=== PATIENT | female | born 1990 | race Hispanic/Latino ===

== ENCOUNTER 2018-08-29 12:33 | Emergency (ER) | payer MEDICAID, OTHER ==
[2018-08-29 13:00] LABS: BASOPHILS % (AUTO) 0.7 % (0.0-5.0); EOSINOPHILS % (AUTO) 1.4 % (0.0-8.0); HEMATOCRIT 37.4 % (36-48); LYMPHOCYTES % (AUTO) 26.9 % (21.0-51.0); MEAN CORPUSCULAR HEMOGLOBIN 28.1 pg (27.0-33.0); MEAN CORPUSCULAR HGB CONC 33.2 g/dL (32.0-36.0); MEAN CORPUSCULAR VOLUME 84.7 fL (79-99); MONOCYTES % (AUTO) 6.2 % (3.0-13.0); NEUTROPHILS % (AUTO) 64.8 % (40.0-77.0); PLATELET COUNT (AUTO) 305 K/uL (130-400); RED BLOOD CELL COUNT(AUTO) 4.41 MIL/uL (4.00-5.50); RED CELL DISTRIBUTION WIDTH 13.9 % (11.0-15.5); WHITE BLOOD COUNT (AUTO) 10.2 K/uL (4.8-10.8)
[2018-08-29 13:21] LABS: APPEARANCE,URINE Clear (CLEAR); BILIRUBIN,URINE Negative (NEGATIVE); COLOR,URINE Yellow (YELLOW); GLUCOSE, URINE (UA) Negative (NEGATIVE); KETONES,URINE Negative (NEGATIVE); LEUKOCYTE ESTERASE ,URINE Negative (NEGATIVE); NITRATE,URINE Negative (NEGATIVE); OCCULT BLOOD,URINE Negative (NEGATIVE); PROTEIN,URINE Negative (NEGATIVE)
== END 2018-08-29 15:01 | disposition home or self-care (01) ==
LOC: EDH 12:33
DX: O20.0 Threatened abortion (principal); Z3A.01 Less than 8 weeks gestation of pregnancy; Z90.49 Acquired absence of other specified parts of digestive tract; Z98.890 Other specified postprocedural states
CPT/HCPCS: 36415; 76817; 81003; 84702; 85025; 86900; 86901

== ENCOUNTER 2019-02-07 12:44 | Observation (INO) | payer MEDICAID ==
[2019-02-07 13:30] LABS: APPEARANCE,URINE Clear (CLEAR); BILIRUBIN,URINE Negative (NEGATIVE); COLOR,URINE Yellow (YELLOW); GLUCOSE, URINE (UA) Negative (NEGATIVE); KETONES,URINE 15 mg/dL (NEGATIVE); LEUKOCYTE ESTERASE ,URINE Small (NEGATIVE); NITRATE,URINE Negative (NEGATIVE); OCCULT BLOOD,URINE Negative (NEGATIVE); PROTEIN,URINE Negative (NEGATIVE)
[2019-02-07 14:12] LABS: BACTERIA,URINE Moderate /HPF (None Seen); MUCUS,URINE Few LPF (None Seen); RBC,URINE None Seen /HPF (0-1); SQUAMOUS EPITHELIAL CELL,UR Moderate /HPF (0-2)
== END 2019-02-07 14:56 | disposition home or self-care (01) ==
LOC: EDH 12:44 → LDH 13:01
PROVIDERS: ADMIT Obstetrics & Gynecology; ATTEND Obstetrics & Gynecology
DX: O26.893 Other specified pregnancy related conditions, third trimester (principal); R10.9 Unspecified abdominal pain; Z3A.28 28 weeks gestation of pregnancy
CPT/HCPCS: 81001; 99284; G0378 ×2

== ENCOUNTER 2020-06-04 21:26 | Observation (INO) | payer OTHER, MEDICAID ==
[2020-06-04 22:06] LABS: APPEARANCE,URINE Cloudy (CLEAR); BILIRUBIN,URINE Negative (NEGATIVE); COLOR,URINE Yellow (YELLOW); GLUCOSE, URINE (UA) Negative (NEGATIVE); KETONES,URINE Negative (NEGATIVE); LEUKOCYTE ESTERASE ,URINE Negative (NEGATIVE); NITRATE,URINE Negative (NEGATIVE); OCCULT BLOOD,URINE Negative (NEGATIVE); PH,URINE 6.5 (5.0-8.0); PROTEIN,URINE Negative (NEGATIVE)
[2020-06-04 22:14] LABS: AMPHET/METH SCREEN,URINE NEGATIVE (NEGATIVE); BARBITURATE SCREEN, URINE NEGATIVE (NEGATIVE); BENZODIAZEPINES SCREEN,URINE NEGATIVE (NEGATIVE); CANNABINOID SCREEN,URINE NEGATIVE (NEGATIVE); COCAINE SCREEN,URINE NEGATIVE (NEGATIVE); OPIATE SCREEN,URINE NEGATIVE (NEGATIVE); PHENCYCLIDINE SCREEN,URINE NEGATIVE (NEGATIVE)
[2020-06-04 22:19] LABS: AMORPHOUS SEDIMENT,UR Few /LPF (None Seen); BACTERIA,URINE Few /HPF (None Seen); MUCUS,URINE Few LPF (None Seen); RBC,URINE 0-1 /HPF (0-1); SQUAMOUS EPITHELIAL CELL,UR Few /HPF (0-2); WBC,URINE 0-1 /HPF (0-1)
[2020-06-04] MEDS ORDERED: LACTATED RINGERS 1000ML 1,000 ML IV SCH (23:15)
== END 2020-06-05 00:55 | disposition home or self-care (01) ==
LOC: EDH 21:26 → LDH 21:27
PROVIDERS: ADMIT Obstetrics & Gynecology; ATTEND Obstetrics & Gynecology
DX: O26.892 Other specified pregnancy related conditions, second trimester (principal); R10.9 Unspecified abdominal pain; O99.212 Obesity complicating pregnancy, second trimester; E66.9 Obesity, unspecified; Z88.0 Allergy status to penicillin; Z3A.26 26 weeks gestation of pregnancy
CPT/HCPCS: 80305; 81001; 96360; 99284; G0378 ×3

== ENCOUNTER 2025-08-02 19:15 | Emergency (ER) | payer BC, MEDICAID, OTHER ==
[~2025-08-02] VITALS: Ht 157.5 cm; Wt 93.4 kg
[2025-08-02 19:41] LABS: IMMATURE GRANULOCYTE ABSOLUTE 0.04 K/uL (0-1); NUCLEATED RED BLOOD CELLS 0.0 % (0.0-0.19); PLATELET COUNT (AUTO) 352 K/uL (130-400); RED BLOOD CELL COUNT(AUTO) 4.48 MIL/uL (4.00-5.50); RED CELL DISTRIBUTION WIDTH 12.7 % (11.0-15.5); WHITE BLOOD COUNT (AUTO) 11.7 K/uL (4.8-10.8)
--- NOTE | 2025-08-02 19:49 | ERN ---
General Chief Complaint: Abdominal Pain Stated Complaint: C/O ABD PAIN W/ N X V X DIARRHEA,DIZZINESS X 5 DAY Time Seen by MD: 19:18 History of Present Illness Initial Comments 35-year-old female, otherwise healthy, presents for vomiting and diarrhea for the last five days. Patient reports five to did not episodes of vomit and 10+ episodes of watery nonbloody diarrhea daily for the last five days. She reports dry in the mouth and feeling fatigued. She reports some generalized abdominal cramping. She went to her PCP and was discharged with an antiemetic which he has been taking. She has been able to drank liquid IV/Gatorade. When she tries to eat whole foods she vomits. Her kids have similar symptoms. No fevers. Allergies: Coded Allergies: No Known Drug Allergies (Verified Allergy, 12/14/12) Home Meds No Active Prescriptions or Reported Meds Past Medical History Past Medical History: No Pertinent History Past Surgical History: None Female( History) LMP: Jun 20, 2025 ROS Dictation CONSTITUTIONAL: No chills, no fever, no weakness, no diaphoresis, no malaise. HEAD/FACE: No signs of trauma. EENT: No eye pain, no blurred vision, no tearing, no double vision, no ear pain, no ear discharge, no nose pain, no nasal congestion, no throat pain, no throat swelling, no mouth pain. RESPIRATORY: No cough, no orthopnea, no SOB, no stridor, no wheezing. CARDIOVASCULAR: No chest pain, no edema, no palpitations, no syncope. GASTROINTESTINAL/ABDOMINAL: Nausea or vomiting diarrhea. GENITOURINARY: No abnormal discharge, no dysuria, no frequent urination, no hematuria. No complaints of pain in the genitals. MUSCULOSKELETAL: No back pain, no gout, no joint pain, no joint swelling, no muscle pain, no muscle stiffness, no neck pain. INTEGUMENTARY: No change in color, no change in hair/nails, no dryness, no lesion, no lumps, no rash. NEUROLOGICAL/PSYCH: No anxiety, not depressed, no emotional problem, no headache, no numbness, no pre-existing deficit, no history of seizures, no tremors, no weakness. HEMATOLOGIC/LYMPHATIC: Not anemic, no history of blood clots, no apparent bleeding, no bruising, glands not swollen. All Systems Negative, Except as Noted. Physical Exam Physical Exam Dictation VITAL SIGNS: Reviewed. GENERAL APPEARANCE: Alert, oriented x3, no acute distress, obese. HEAD AND FACE: Non-traumatic. EYES: PERRL, pink conjunctivas, eyelid no trauma, anterior chamber clear. EARS: Pinnas intact and no signs of trauma or erythema. Ear canals clear and no discharge. TMs no erythema. NOSE: No discharge, no bleeding. OROPHARYNX: Mouth normal, teeth no caries, tongue pink. Pharynx clear, no erythema. Tonsils no exudates, no abscesses noted. Mucous membrane moist. NECK: Supple, non-tender, no thyromegaly, no masses, no JVD, no bruits. BREAST: Deferred. CHEST: No tenderness, no crepitus, no paradoxical movement, no retractions. LUNGS: Clear, well-ventilated, symmetric, no rales, no wheezing, no rhonchi, no stridor, good breath sounds bilaterally. HEART: Regular rate, regular rhythm, no murmur, no gallops. VASCULAR: No peripheral edema. ABDOMEN: Soft, positive bowel sounds, nondistended, no guarding, nontender, no rebound, no masses no hepatomegaly, no splenomegaly, no Anguiano's sign, no her nias. RECTAL: Deferred. GENITAL: Deferred. NEUROLOGICAL: Normal speech, gross motor function intact, gross sensory function intact. MUSCULOSKELETAL: Neck nontender, full range of motion, back nontender, full range of motion. EXTREMITIES: Nontender, full range of motion. SKIN: Color pink, dry, no turgor, no rash, no lacerations, no abrasions, no contusions. LYMPHATICS: Deferred. Results Laboratory and Microbiology Lab and Micro Result Laboratory Tests Test 08/02/25 15:21 08/02/25 19:36 Urine Color LIGHT-YELLOW (YELLOW) Urine Appearance CLEAR (CLEAR) Urine pH 6.0 (5.0-8.0) Urine Specific [place] 1.003 (1.001-1.031) Urine Protein NEGATIVE mg/dL (NEGATIVE) Urine Glucose (UA) NEGATIVE mg/dL (NEGATIVE) Urine Ketones NEGATIVE mg/dL (NEGATIVE) Urine Occult Blood SMALL (NEGATIVE) H Urine Nitrate NEGATIVE (NEGATIVE) Urine Bilirubin NEGATIVE mg/dL (NEGATIVE) Urine Urobilinogen 0.2 mg/dL (0.2-1.0) Urine Leukocyte Esterase NEGATIVE Sana/uL Urine RBC 0-1 /HPF (0-1) Urine WBC 0-1 /HPF (0-1) Urine Squamous Epithelial Cells RARE /HPF (0-2) Urine Bacteria RARE /HPF (None Seen) White Blood Count 11.7 K/uL (4.8-10.8) H Red Blood Count 4.48 MIL/uL (4.00-5.50) Hemoglobin 12.8 g/dL (12.0-16.0) Hematocrit 38.9 % (36-48) Mean Corpuscular Volume 86.8 fL (79-99) Mean Corpuscular Hemoglobin 28.6 pg (27.0-33.0) Mean Corpuscular Hemoglobin Concent 32.9 g/dL (32.0-36.0) Red Cell Distribution Width 12.7 % (11.0-15.5) Platelet Count 352 K/uL (130-400) Mean Platelet Volume 10.6 fL (7.5-10.5) H Immature Granulocyte % (Auto) 0.3 % (0-1) Neutrophils (%) (Auto) 62.6 % (40.0-77.0) Lymphocytes (%) (Auto) 26.1 % (21.0-51.0) Monocytes (%) (Auto) 7.5 % (3.0-13.0) Eosinophils (%) (Auto) 2.9 % (0.0-8.0) Basophils (%) (Auto) 0.6 % (0.0-5.0) Neutrophils # (Auto) 7.3 K/uL (1.8-7.7) Lymphocytes # (Auto) 3.0 K/uL (1.0-4.8) Monocytes # (Auto) 0.9 K/uL (0.1-1.0) Eosinophils # (Auto) 0.34 K/uL (0.00-0.70) Basophils # (Auto) 0.07 K/uL (0.00-0.20) Absolute Immature Granulocyte (auto 0.04 K/uL (0-1) Nucleated Red Blood Cells 0.0 % (0.0-0.19) Sodium Level 138 mmol/L (136-145) Potassium Level 3.8 mmol/L (3.5-5.1) Chloride Level 103 mmol/L (101-111) Carbon Dioxide Level 25 mmol/L (21-32) Blood Urea Nitrogen 11 mg/dL (7-18) Creatinine 0.8 mg/dL (0.5-1.0) Glomerular Filtration Rate Calc 98 mL/min (>90) Random Glucose 85 mg/dL (70-105) Total Calcium 8.6 mg/dL (8.5-10.1) Total Bilirubin 1.3 mg/dL (0.2-1.0) H Direct Bilirubin 0.3 mg/dL (0.0-0.3) Aspartate Amino Transf (AST/SGOT) 22 U/L (10-37) Alanine Aminotransferase (ALT/SGPT) 45 U/L (12-78) Alkaline Phosphatase 84 U/L (50-136) Total Protein 7.5 g/dL (6.0-8.3) Albumin 3.9 g/dL (3.5-5.0) Lipase 33 U/L (16-77) MDM CC: Nausea or vomiting diarrhea and abdominal discomfort for the last five days. Fatigue and weakness. Historian: Patient Comorbidities: Obesity Limitations by social determinants of health: None Differential diagnosis: Gastroenteritis, electrolyte abnormality, dehydration. Low suspicion for any surgical pathology. Abdomen soft nontender nondistended. No bloody stool. No high fevers. P.o. tolerant. Vital signs are stable, remained stable in the ER The labs show mild leukocytosis 11.7 K no shift no bands no anemia. Chemistry panel is unremarkable. Liver enzymes and lipase are normal. Urinalysis unremarkable. Patient received IV fluids, Zofran motor Toradol here in the ER. Symptoms most consistent with a mild dehydration due to gastroenteritis. Family have similar symptoms. Low suspicion for any life threats. She is p.o. tolerant. Plan will be to discharge with ondansetron and Imodium. Since she has a prolonged course of watery diarrhea, we will give her a short course of azithromycin. Patient agrees with the plan. We will DC. ED Course Orders Procedure Category Date Status Time Cbc With Differential LAB 08/02/25 Complete ,Urine Test LAB 08/02/25 In Process 19:27 Urinalysis Profile LAB 08/02/25 In Process 19:27 Lactated Ringers PHA 08/02/25 Complete 1000ml (Lactated 19:30 Ketorolac PHA 08/02/25 Complete Tromethamine 15mg/Ml 19:30 Ondansetron 4mg Inj PHA 08/02/25 Complete (Zofran 4mg Inj) 19:30 Lipase LAB 08/02/25 Complete 19:27 Basic Metabolic Panel LAB 08/02/25 Complete 19:27 Hepatic Function Panel LAB 08/02/25 Complete 19:27 Current Medications Medications (Trade) Dose Ordered Sig/Madonna Route PRN Reason Start Time Stop Time Status Last Admin Dose Admin Ketorolac Tromethamine (toRADol) 15 mg ONCE ONCE IV 08/02/25 19:30 08/02/25 19:31 DC 08/02/25 19:52 Lactated Ringer's 1,000 ml @ 0 mls/hr ONCE ONCE IV 08/02/25 19:30 08/02/25 19:31 DC 08/02/25 19:53 Ondansetron HCl (zoFRAN 4MG INJ) 4 mg ONCE ONCE IVP 08/02/25 19:30 08/02/25 19:31 DC 08/02/25 19:52 Vital Signs Date Time Temp Pulse Resp B/P (MAP) Pulse Ox O2 Delivery O2 Flow Rate FiO2 08/02/25 19:36 98.1 94 20 127/78 97 Room Air* 0 21 08/02/25 19:16 98.1 94 20 127/78 97 Room Air DX & DISP Disposition: Discharge Departure Impression: Primary Impression: Gastroenteritis Additional Impression: Mild dehydration Condition: Stable Scripts Azithromycin (Azithromycin) 250 Mg Tablet 1 TAB PO AD for 5 Days, #6 TAB 0 Refills 2 the first day followed by 1 for days 2-5 Prov: LEANDRO BRAGG DO 08/02/25 Ondansetron (Ondansetron Odt) 4 Mg Tab.rapdis 1 TAB PO Q6HPRN PRN for nausea/vomiting for 4 Days, #16 TAB 0 Refills Prov: LEANDRO BRAGG DO 08/02/25 Loperamide HCl (Imodium 2 mg Cap) 2 Mg Capsule 2 CAP PO Q6H for loose stool for 5 Days, #40 CAP 0 Refills Prov: LEANDRO BRAGG DO 08/02/25 Additional Instructions: Your symptoms are most consistent with a gastroenteritis. This is often caused by food toxicity or a viral syndrome. This will often pass on its own. Symptoms include abdominal cramping, nausea, vomiting, and watery diarrhea. Your vital signs are stable here in the ER. Your lab work (CBC with differential, metabolic panel, lipase, liver enzymes) is unremarkable. Your urinalysis and tests are unremarkable. You received IV fluids here in the ER. I have prescribed ondansetron dissolvable tabs. You can use this as needed for nausea and to prevent vomiting. You can take this up to 4 times a day as needed. I have prescribed Imodium. You can take this as needed to prevent frequent watery diarrhea. I have prescribed a short course of antibiotics (azithromycin). As we di scussed, sometimes your symptoms may be caused by bacterial overgrowth. This antibiotic may help with resolving your symptoms. Be sure to drink plenty of liquids. An electrolyte solution such as Gatorade or Pedialyte as good choice. Start with bananas and rice, and advance your diet after that as tolerated. Please return to the emergency department as needed. If you continue with symptoms after 48-72 hours from now, follow up with the primary doctor. Referrals: NARDA LEE MD (PCP) LEANDRO BRAGG DO Aug 02, 2025 19:49
[2025-08-02 19:53] LABS: CREATININE 0.8 mg/dL (0.5-1.0); GLOMERULAR FILTR. RATE CALC 98.0 mL/min (>90); GLUCOSE,RANDOM 85.0 mg/dL (70-105); SODIUM SERUM 138.0 mmol/L (136-145); UREA NITROGEN, BLOOD 11.0 mg/dL (7-18)
[2025-08-02] MEDS: LACTATED RINGERS 1000ML 1,000 ML IV ONE (19:53)
[2025-08-02 19:57] LABS: APPEARANCE,URINE CLEAR (CLEAR); GLUCOSE, URINE (UA) NEGATIVE (NEGATIVE); LEUKOCYTE ESTERASE ,URINE NEGATIVE Leu/uL (NEGATIVE); NITRATE,URINE NEGATIVE (NEGATIVE); OCCULT BLOOD,URINE SMALL (NEGATIVE)
[2025-08-02 19:57] LABS: ASPARTATE AMINOTRANSFERASE 22.0 U/L (10-37); TOTAL PROTEIN, SERUM 7.5 g/dL (6.0-8.3)
[2025-08-02 19:59] LABS: ADD UA MICROSCOPIC YES
[2025-08-02 20:01] LABS: SQUAMOUS EPITHELIAL CELL,UR RARE /HPF (0-2)
[2025-08-02 20:05] LABS: HCG,QUALITATIVE URINE NEGATIVE (NEGATIVE)
[2025-08-02] MEDS ORDERED: AZIT250T9 PO (20:05)
[2025-08-02] MEDS ORDERED: ONDA-243 PO (20:05)
[2025-08-02] MEDS ORDERED: LOPE2CAP PO (20:05)
--- NOTE | 2025-08-02 20:39 | NUR ---
D/C AFTER FLUIDS PER
[2025-08-02 20:42] VITALS: BP 124/74; PULSE 88; RESP 20; TEMP 98.1; O2SAT 97
== END 2025-08-02 20:45 | disposition home or self-care (01) ==
LOC: EDH 19:15
DX: K52.9 Noninfective gastroenteritis and colitis, unspecified (principal); E86.0 Dehydration; E66.9 Obesity, unspecified; R11.2 Nausea with vomiting, unspecified; Z68.37 Body mass index [BMI] 37.0-37.9, adult
CPT/HCPCS: 99284; 96374; 96375; 80076; 80048; 83690; 85025; 81001; 81025; 36415; J1885; J7120; J2405